=== PATIENT | female | born 1990 | race Caucasian/White ===

== ENCOUNTER → 2018-03-03 | Outpatient (CLI) | payer OTHER | LOC: BMCIMAGING 10:18 | PROVIDERS: ATTEND Family Medicine | DX: S59.911A Unspecified injury of right forearm, initial encounter (principal); S52.201A Unspecified fracture of shaft of right ulna, initial encounter for closed fracture ==

== ENCOUNTER → 2018-03-18 | Outpatient (CLI) | payer OTHER | LOC: BMCIMAGING 10:41 | PROVIDERS: ATTEND Physician Assistant | DX: S52.201D Unspecified fracture of shaft of right ulna, subsequent encounter for closed fracture with routine healing (principal) ==

== ENCOUNTER → 2018-04-01 | Outpatient (CLI) | payer OTHER | LOC: BMCIMAGING 10:27 | PROVIDERS: ATTEND Physician Assistant | DX: S52.224D Nondisplaced transverse fracture of shaft of right ulna, subsequent encounter for closed fracture with routine healing (principal) ==

== ENCOUNTER → 2018-04-29 | Outpatient (CLI) | payer OTHER | LOC: BMCIMAGING 07:54 | PROVIDERS: ATTEND Physician Assistant | DX: S52.091D Other fracture of upper end of right ulna, subsequent encounter for closed fracture with routine healing (principal) ==

== ENCOUNTER → 2018-06-03 | Outpatient (CLI) | payer OTHER | LOC: BMCIMAGING 07:54 | PROVIDERS: ATTEND Physician Assistant | DX: S52.221D Displaced transverse fracture of shaft of right ulna, subsequent encounter for closed fracture with routine healing (principal) ==

== ENCOUNTER → 2018-07-14 | Outpatient (CLI) | payer OTHER | LOC: BMCIMAGING 08:37 | PROVIDERS: ATTEND Physician Assistant | DX: S52.201G Unspecified fracture of shaft of right ulna, subsequent encounter for closed fracture with delayed healing (principal) ==